=== PATIENT | female | born 1965 | race African-American/Black ===

== ENCOUNTER 2021-06-24 10:02 | Emergency (ER) | payer OTHER | END 2021-06-24 14:46 | disposition left against medical advice (07) | LOC: ERS 10:02 | DX: Z53.21 Procedure and treatment not carried out due to patient leaving prior to being seen by health care provider (principal) ==

== ENCOUNTER 2022-11-06 14:30 | Outpatient (CLI) | payer BC | END 2022-11-06 14:31 | disposition home or self-care (01) | LOC: BICMAMMO 14:30 | PROVIDERS: ATTEND Family Medicine | DX: Z12.31 Encounter for screening mammogram for malignant neoplasm of breast (principal) | CPT/HCPCS: 77063; 77067 ==